=== PATIENT | male | born 1980 | race African-American/Black ===

== ENCOUNTER 2019-02-10 17:59 | Emergency (ER) | payer OTHER ==
[~2019-02-10] VITALS: Ht 175.3 cm; Wt 83.0 kg
[2019-02-10 18:03] VITALS: Ht 175.3 cm; Wt 83.0 kg
[2019-02-10 20:32] LABS: BASOPHIL % 0.4 % (0-2); PLATELET COUNT 230 x10^3mcL (130-400); RED CELL DISTRIBUTION WIDTH 13.1 % (11.5-14.5)
[2019-02-10 20:47] LABS: ALKALINE PHOSPHATASE 88 U/L (46-116); ALT/SGPT 20 U/L (16-63); AST/SGOT 18 U/L (15-37); BILIRUBIN TOTAL 0.52 mg/dL (0.20-1.00); CALCIUM 9.4 mg/dL (8.5-10.1); CARBON DIOXIDE 27.5 mmol/L (21-32); CHLORIDE SERUM 101 mmol/L (98-107); CREATININE SERUM 1.2 mg/dL (0.7-1.3); GFR1 > 60 mL/min; GLUCOSE SERUM 93 mg/dL (74-106); POTASSIUM SERUM 3.8 mmol/L (3.5-5.1); SODIUM SERUM 135 mmol/L (136-145); TOTAL PROTEIN, SERUM 7.7 g/dL (6.4-8.2); TRIGLYCERIDES 54 mg/dL (<150)
[2019-02-10 20:50] LABS: CHOLESTEROL 212 mg/dL (<200); CHOLESTEROL/HDL RATIO 2.8; HDL CHOLESTEROL 76 mg/dL (40-60)
[2019-02-10 21:02] LABS: AMPHETAMINE QUAL UR POSITIVE (See below)
[2019-02-11 01:07] VITALS: BP 132/78
== END 2019-02-11 01:07 | disposition home or self-care (01) ==
LOC: ED 17:59
PROVIDERS: Emergency Medicine
DX: R07.89 Other chest pain (principal); F15.10 Other stimulant abuse, uncomplicated; F17.210 Nicotine dependence, cigarettes, uncomplicated
CPT/HCPCS: 36415; 85378; Q0092

== ENCOUNTER 2020-01-28 14:20 | Emergency (ER) | payer OTHER ==
[~2020-01-28] VITALS: Ht 177.8 cm; Wt 87.1 kg
[2020-01-28 14:31] VITALS: Ht 177.8 cm; Wt 87.1 kg
[2020-01-28 15:41] VITALS: BP 138/92
== END 2020-01-28 15:41 | disposition home or self-care (01) ==
LOC: ED 14:20
DX: F07.81 Postconcussional syndrome (principal); Y04.8XXA Assault by other bodily force, initial encounter; Y93.89 Activity, other specified; Y92.89 Other specified places as the place of occurrence of the external cause; Y99.8 Other external cause status